=== PATIENT | male | born 1955 | race Caucasian/White ===

== ENCOUNTER 2018-02-16 00:55 | Observation (INO) | payer BC ==
[2018-02-16] MEDS ORDERED: Ondansetron 4 MG/2 ML SDV IVPUSH ONE (01:05)
[2018-02-16] MEDS ORDERED: Morphine 4 MG/ML Syringe IVPUSH ONE (01:06)
[2018-02-16] MEDS ORDERED: Albuterol/Ipratropium 3.0-0.5 MG/3 ML Neb Soln NEB ONE (01:06)
--- NOTE | 2018-02-16 01:13 | EDM.PDOC ---
ED HPI GENERAL MEDICAL PROBLEM - General Chief Complaint: Cardiovascular Problem Stated Complaint: CHEST PAIN Time Seen by Provider: 02/16/18 01:04 Source of Information: Reports: Patient History Limitations: Reports: No Limitations - History of Present Illness INITIAL COMMENTS - FREE TEXT/NARRATIVE: Patient is a 62-year-old gentleman who presents via EMS to the ER with a complaint of chest pain. Patient states that yesterday morning he had some left shoulder pain and presented to the [facility]. He was seen there by provider who gave him pain medicine and told him she planned on referring him to orthopedic surgery. Pain persisted during the day and he took a hydrocodone at 2100 and 2300. He did not obtain relief so contacted 911. Patient had underwent cardiac catheterization 1 week ago. Procedure said to be uneventful. Patient is currently on Plavix. Patient is also complaining of shortness of breath, but denies nausea, vomiting, diarrhea, abdominal pain, headache, vision changes, repetitive motion of left upper extremity, or any fall or trauma recently. 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, Other Medication(s) (Hydrocodone) - Related Data Allergies Allergy/AdvReac Type Severity Reaction Status Date / Time No Known Allergies Allergy Verified 02/16/18 01:33 Home Meds: Home Meds Albuterol [Proventil Neb Soln] 1 dose INH QID PRN 06/05/17 [History] Arformoterol [Brovana] 15 mcg IH BID 06/05/17 [History] Aspirin [Wenceslao Chewable Aspirin] 81 mg PO DAILY 06/05/17 [History] Budesonide [Pulmicort] 1 inh IH BID 06/05/17 [History] Carvedilol [Coreg] 6.25 mg PO DAILY 06/05/17 [History] Clopidogrel Bisulfate [Clopidogrel] 75 mg PO DAILY 06/05/17 [History] Cyclobenzaprine [Flexeril] 5 - 10 mg PO TID PRN 06/05/17 [History] Fluticasone Propionate [Flonase] 1 spray INH BID 06/05/17 [History] Hydrocodone/Acetaminophen [[place] 5-325] 1 each PO BID PRN 06/05/17 [History] Nitroglycerin 0.4 mg SL ASDIRECTED PRN 06/05/17 [History] Rosuvastatin [Crestor] 20 mg PO BEDTIME 06/05/17 [History] Tiotropium [Spiriva HandiHaler] 18 mcg INH DAILY 06/05/17 [History] Losartan [Cozaar] 1 tab PO DAILY 08/21/17 [History] Gabapentin [Neurontin] 300 mg PO BID 12/26/17 [History] Montelukast [Singulair] 10 mg PO BEDTIME 12/26/17 [History] Promethazine HCl/Codeine [Prometh-Codein 6.25-10 mg/5 ml] 2.5 ml PO Q4HR PRN 05/03 [History] Roflumilast [Daliresp] 500 mcg PO DAILY 12/26/17 [History] Isosorbide Mononitrate [Isosorbide Mononitrate ER] 30 mg PO 2100 02/16/18 [ History] Past Medical History HEENT History: Reports: Hard of Hearing Cardiovascular History: Reports: CAD, [place], Stents Respiratory History: Reports: COPD Gastrointestinal History: Reports: Cholelithiasis Musculoskeletal History: Reports: Other (See Below) Neurological History: Reports: CVA, Other (See Below) Other Neuro History: 2006 - Past Surgical History Cardiovascular Surgical History: Reports: Coronary Artery Stent Musculoskeletal Surgical History: Reports: Other (See Below) Other Musculoskeletal Surgeries/Procedures:: surgery on RUE for tendon repair Social & Family History - Family History Cardiac: Reports: CAD, [place] Respiratory: Reports: COPD Neurological: Reports: CVA Oncologic: Reports: Other (See Below) - Caffeine Use Caffeine Use: Reports: Coffee Other Caffeine Use: 4-5 cups a day ED ROS GENERAL - Review of Systems Review Of Systems: ROS reveals no pertinent complaints other than HPI. Constitutional: Reports: No Symptoms HEENT: Reports: No Symptoms Respiratory: Reports: Shortness of Breath Cardiovascular: Reports: Chest Pain Endocrine: Reports: No Symptoms GI/Abdominal: Reports: No Symptoms : Reports: No Symptoms Musculoskeletal: Reports: Shoulder Pain (Left) Skin: Reports: No Symptoms Neurological: Reports: No Symptoms Psychiatric: Reports: No Symptoms Hematologic/Lymphatic: Reports: No Symptoms Immunologic: Reports: No Symptoms ED EXAM, GENERAL - Physical Exam Exam: See Below Exam Limited By: No Limitations General Appearance: Alert, WD/WN, Mild Distress Eye Exam: Bilateral Eye: Normal Inspection Nose: Normal Inspection, Normal Mucosa, No Blood Throat/Mouth: Normal Inspection, Normal Oropharynx, No Airway Compromise Head: Atraumatic, Normocephalic Neck: Normal Inspection, Supple, Non-Tender, Full Range of Motion Respiratory/Chest: No Respiratory Distress, Normal Breath Sounds Cardiovascular: Regular Rate, Rhythm, No Murmur, No Rub GI/Abdominal: Normal Bowel Sounds, Soft, Non-Tender, No Organomegaly, No Distention, No Abnormal Bruit, No Mass Back Exam: Normal Inspection. No: CVA Tenderness (L), CVA Tenderness (R) Extremities: No Pedal Edema, Normal Capillary Refill, Arm Pain (Left shoulder tenderness to palpation and range of motion. No ecchymosis, crepitus, edema, or neurovascular deficit noted.) Neurological: Alert, Oriented, CN II-XII Intact, Normal Cognition, No Motor/ Sensory Deficits Psychiatric: Normal Affect, Normal Mood Skin Exam: Warm, Dry, Intact, Normal Color, No Rash Lymphatic: No Adenopathy EKG INTERPRETATION EKG Date: 02/16/18 Time: 01:05 Rhythm: NSR Rate (Beats/Min): 74 Bedias: Normal P-Wave: Present QRS: Normal ST-T: Other (Nonspecific) QT: Prolonged Comparison: No Change (Previous EKG a 12/26/17) Course - Orders/Labs/Meds Orders: Active Orders 24 hr Category Date Time Status EKG Documentation Completion [RC] ASDIRECTED Care 02/16/18 01:05 Ordered RT Aerosol Therapy [RC] ASDIRECTED Care 02/16/18 01:06 Ordered Chest 1V Frontal [CR] Stat Exams 02/16/18 01:04 Ordered CBC WITH AUTO DIFF [HEME] Stat Lab 02/16/18 01:04 Ordered COMPREHENSIVE METABOLIC PN,CMP [CHEM] Stat Lab 02/16/18 01:04 Ordered D-DIMER QUANTITATIVE [COAG] Stat Lab 02/16/18 01:04 Ordered INR,PT,PROTHROMBIN TIME [COAG] Stat Lab 02/16/18 01:04 Ordered PTT,PARTIAL THROMBOPLSTIN TIME [COAG] Stat Lab 02/16/18 01:04 Ordered TROPONIN I [CHEM] Stat Lab 02/16/18 01:04 Ordered Albuterol/Ipratropium [DuoNeb 3.0-0.5 MG/3 ML] Med 02/16/18 01:06 Once 3 ml NEB ONETIME ONE Morphine Med 02/16/18 01:06 Once 4 mg IVPUSH ONETIME ONE Ondansetron [Zofran] Med 02/16/18 01:05 Once 4 mg IVPUSH ONETIME ONE EKG 12 Lead [EK] Routine Ther 02/16/18 01:04 Ordered - Radiology Interpretation Free Text/Narrative:: Chest x-ray shows bilateral perihilar interstitial thickening suspicion for chronic bronchitis - Re-Assessments/Exams Free Text/Narrative Re-Assessment/Exam: 02/16/18 02:06 Patient afebrile, nontoxic appearing, vital signs stable, pain somewhat controlled. Discussed case with Dr. Younger, he would accept observation admission after EKG and case was reviewed by cardiology. Discussed case and 2 EKGs with soil analyst, Dr. Arnold. Recommendation was for serial enzymes. However, no current requirement for transfer. Departure - Departure Time of Disposition: 02:09 Disposition: Refer to Observation Condition: Fair Clinical Impression: Chest pain Qualifiers: Chest pain type: unspecified Qualified Code(s): R07.9 - Chest pain, unspecified Shoulder pain, left Qualifiers: Chronicity: acute Qualified Code(s): M25.512 - Pain in left shoulder - My Orders Last 24 Hours: My Active Orders 02/16/18 01:04 Chest 1V Frontal [CR] Stat CBC WITH AUTO DIFF [HEME] Stat COMPREHENSIVE METABOLIC PN,CMP [CHEM] Stat D-DIMER QUANTITATIVE [COAG] Stat INR,PT,PROTHROMBIN TIME [COAG] Stat PTT,PARTIAL THROMBOPLSTIN TIME [COAG] Stat TROPONIN I [CHEM] Stat EKG 12 Lead [EK] Routine 02/16/18 01:05 EKG Documentation Completion [RC] ASDIRECTED Ondansetron [Zofran] 4 mg IVPUSH ONETIME ONE 02/16/18 01:06 RT Aerosol Therapy [RC] ASDIRECTED Albuterol/Ipratropium [DuoNeb 3.0-0.5 MG/3 ML] 3 ml NEB ONETIME ONE Morphine 4 mg IVPUSH ONETIME ONE - Assessment/Plan Last 24 Hours: My Active Orders 02/16/18 01:04 Chest 1V Frontal [CR] Stat CBC WITH AUTO DIFF [HEME] Stat COMPREHENSIVE METABOLIC PN,CMP [CHEM] Stat D-DIMER QUANTITATIVE [COAG] Stat INR,PT,PROTHROMBIN TIME [COAG] Stat PTT,PARTIAL THROMBOPLSTIN TIME [COAG] Stat TROPONIN I [CHEM] Stat EKG 12 Lead [EK] Routine 02/16/18 01:05 EKG Documentation Completion [RC] ASDIRECTED Ondansetron [Zofran] 4 mg IVPUSH ONETIME ONE 02/16/18 01:06 RT Aerosol Therapy [RC] ASDIRECTED Albuterol/Ipratropium [DuoNeb 3.0-0.5 MG/3 ML] 3 ml NEB ONETIME ONE Morphine 4 mg IVPUSH ONETIME ONE Assessment:: Chest pain, left shoulder. Plan: Observation admission to Dr. Younger
[2018-02-16 01:36] LABS: ANION GAP 15.7 mmol/L (5-15); CHLORIDE,CL 104 mmol/L (98-115); SODIUM,NA 137 mmol/L (136-145)
[2018-02-16] MEDS ORDERED: HYDROmorphone 1 MG/ML Syringe IVPUSH ONE ×2 (02:10→07:19)
[2018-02-16] MEDS ORDERED: Nitroglycerin 0.4 MG Tab.SL SL ONE (07:19)
[2018-02-16 08:18] LABS: ANION GAP 16.6 mmol/L (5-15); CHLORIDE,CL 101 mmol/L (98-115); SODIUM,NA 137 mmol/L (136-145)
[2018-02-16] MEDS ORDERED: Nitroglycerin 0.4 MG Tab.SL SL PRN ×2 (09:06→10:21)
[2018-02-16] MEDS ORDERED: Lidocaine 2% 100 MG/5 ML Syringe IVPUSH PRN (09:06)
[2018-02-16] MEDS ORDERED: Atropine 0.1 MG/ML 10 ML Syringe IVPUSH PRN (09:06)
[2018-02-16] MEDS ORDERED: EPINEPHrine 1:10,000 1 MG/10 ML Syringe IVPUSH PRN (09:06)
--- NOTE | 2018-02-16 09:26 | PCM.HP ---
H&P History of Present Illness - General Date of Service: 02/16/18 Admit Problem/Dx: Admission Diagnosis/Problem Admission Diagnosis/Problem Chest pain Source of Information: Patient, Family, Old Records, Provider History Limitations: Reports: No Limitations Left Arm Pain Score (Numeric/FACES): 8 - Related Data Allergies/Adverse Reactions: Allergies Allergy/AdvReac Type Severity Reaction Status Date / Time No Known Allergies Allergy Verified 02/16/18 01:33 Home Medications: Home Meds Albuterol [Proventil Neb Soln] 1 dose INH QID PRN 06/05/17 [History] Arformoterol [Brovana] 15 mcg IH BID 06/05/17 [History] Aspirin [Wenceslao Chewable Aspirin] 81 mg PO DAILY 06/05/17 [History] Budesonide [Pulmicort] 1 inh IH BID 06/05/17 [History] Carvedilol [Coreg] 6.25 mg PO BID 06/05/17 [History] Clopidogrel Bisulfate [Clopidogrel] 75 mg PO DAILY 06/05/17 [History] Cyclobenzaprine [Flexeril] 5 - 10 mg PO TID PRN 06/05/17 [History] Fluticasone Propionate [Flonase] 1 spray INH BID PRN 06/05/17 [History] Hydrocodone/Acetaminophen [[place] 5-325] 1 each PO BID PRN 06/05/17 [History] Nitroglycerin 0.4 mg SL ASDIRECTED PRN 06/05/17 [History] Rosuvastatin [Crestor] 40 mg PO 2100 06/05/17 [History] Tiotropium [Spiriva HandiHaler] 18 mcg INH DAILY 06/05/17 [History] Losartan [Cozaar] 25 mg PO 2100 08/21/17 [History] Gabapentin [Neurontin] 300 mg PO BID 12/26/17 [History] Montelukast [Singulair] 10 mg PO 209912/26/17 [History] Promethazine HCl/Codeine [Prometh-Codein 6.25-10 mg/5 ml] 2.5 ml PO Q4HR PRN 05/03 [History] Roflumilast [Daliresp] 500 mcg PO DAILY 12/26/17 [History] Isosorbide Mononitrate [Isosorbide Mononitrate ER] 30 mg PO 2100 02/16/18 [ History] Celecoxib [CeleBREX] 200 mg PO DAILY #30 cap 02/17/18 [Rx] Past Medical History HEENT History: Reports: Hard of Hearing Cardiovascular History: Reports: CAD, [place], Stents Respiratory History: Reports: COPD Gastrointestinal History: Reports: Cholelithiasis Musculoskeletal History: Reports: Other (See Below) Other Musculoskeletal History: Chronic pain in left shoulder from previous accident/injury. Neurological History: Reports: CVA, Other (See Below) Other Neuro History: 2006 - Past Surgical History Cardiovascular Surgical History: Reports: Coronary Artery Stent Musculoskeletal Surgical History: Reports: Other (See Below) Other Musculoskeletal Surgeries/Procedures:: surgery on RUE for tendon repair Social & Family History - Family History Cardiac: Reports: CAD, [place] Respiratory: Reports: COPD Neurological: Reports: CVA Oncologic: Reports: Other (See Below) - Tobacco Use Smoking Status *Q: Former Smoker Used Tobacco, but Quit: Yes Month/Year Tobacco Last Used: 2016 - Caffeine Use Caffeine Use: Reports: Coffee Other Caffeine Use: 4-5 cups a day H&P Review of Systems - Review of Systems: Review Of Systems: See Below General: Reports: No Symptoms HEENT: Reports: No Symptoms Pulmonary: Reports: Shortness of Breath. Denies: Wheezing, Cough, Sputum Cardiovascular: Reports: No Symptoms Gastrointestinal: Reports: No Symptoms Genitourinary: Reports: No Symptoms Musculoskeletal: Reports: Shoulder Pain Skin: Reports: No Symptoms Psychiatric: Reports: No Symptoms Neurological: Denies: Numbness, Tingling Hematologic/Lymphatic: Reports: No Symptoms Immunologic: Reports: No Symptoms Exam - Exam Exam: See Below - Vital Signs Vital Signs: Last Vital Signs Temp 98.4 F 02/16/18 06:24 Pulse 80 02/16/18 08:00 Resp 24 H 02/16/18 06:24 BP 144/77 H 02/16/18 08:00 Pulse Ox 95 02/16/18 06:24 Weight: 198 lb - Exam Quality Assessment: Supplemental Oxygen. No: DVT Prophylaxis (DAPT therapy) General: Alert, Oriented, Mild Distress HEENT: EOMI, Hearing Intact, Mucosa Moist & Oliver, Pupils Reactive Neck: Supple, Trachea Midline. No: Carotid Bruit Lungs: Clear to Auscultation, Normal Respiratory Effort Cardiovascular: Regular Rate, Regular Rhythm, Normal S1, Normal S2 GI/Abdominal Exam: Soft, Non-Tender (Male) Exam: Deferred Rectal (Males) Exam: Deferred Back Exam: No: CVA Tenderness (L), CVA Tenderness (R) Extremities: No Pedal Edema, Limited Range of Motion (left shoulder: Very limited range of motion, unable to perform Brian, painful arc, guarding, tenderness around glenohumeral, ) Skin: Warm, Dry, Intact Neurological: Cranial Nerves Intact, Reflexes Equal Bilateral Neuro Extensive - Mental Status: Alert, Oriented x3 Neuro Extensive - Motor, Sensory, Reflexes: CN II-XII Intact Psychiatric: Alert, Normal Affect, Normal Mood - Patient Data Lab Results Last 24 hrs: Laboratory Results - last 24 hr 02/16/18 02/16/18 02/16/18 Range/Units 01:00 01:00 01:00 WBC 9.07 (5.00-10.00) 10^3/uL RBC 4.26 L (4.50-6.00) 10^6/uL Hgb 11.5 L (13.0-17.0) g/dL Hct 34.8 L (40.0-52.0) % MCV 81.7 L (82.0-92.0) fL MCH 27.0 (27.0-31.0) pg MCHC 33.0 (32.0-36.0) g/dL RDW 15.3 H (11.5-14.5) % Plt Count 269 (150-400) 10^3/uL MPV 8.2 (7.4-10.4) fL Immature Gran % (Auto) 0.2 (0.0-5.0) % Neut % (Auto) 76.4 H (50.0-70.0) % Lymph % (Auto) 12.0 L (20.0-40.0) % [place] % (Auto) 8.2 H (2.0-8.0) % Eos % (Auto) 3.0 (1.0-3.0) % Baso % (Auto) 0.2 (0.0-1.0) % Immature Gran # (Auto) 0.02 (0.00-0.50) 10^3/uL Neut # (Auto) 6.93 (2.50-7.00) 10^3/uL Lymph # (Auto) 1.09 (1.00-4.00) 10^3/uL [place] # (Auto) 0.74 (0.10-0.80) 10^3/uL Eos # (Auto) 0.27 (0.10-0.30) 10^3/uL Baso # (Auto) 0.02 (0.00-0.10) 10^3/uL ESR (0-15) mm/hr PT 10.4 (8.9-11.4) SEC INR 1.0 (0.9-1.1) APTT 26.0 (20.8-31.2) SEC D-Dimer, Quantitative 308 (<400) ng/mL Sodium 137 (136-145) mmol/L Potassium 3.9 (3.3-5.3) mmol/L Chloride 104 (98-115) mmol/L Carbon Dioxide 21.2 (21.0-32.0) mmol/L Anion Gap 15.7 H (5-15) mmol/L BUN 20 (6-25) mg/dL Creatinine 0.85 (0.51-1.17) mg/dL Est Cr Clr Drug Dosing 94.23 mL/min Estimated GFR (MDRD) > 60 mL/min Glucose 146 mg/dL Calcium 8.3 L (8.7-10.3) mg/dL Total Bilirubin 0.3 (0.2-1.0) mg/dL AST 22 (15-37) U/L ALT 14 (12-78) U/L Alkaline Phosphatase 68 (46-116) IU/L Troponin I 0.05 (0.00-0.070) ng/mL Total Protein 6.5 (6.4-8.2) g/dL Albumin 2.97 L (3.00-4.80) g/dL 02/16/18 02/16/18 02/16/18 Range/Units 05:05 07:42 07:42 WBC (5.00-10.00) 10^3/uL RBC (4.50-6.00) 10^6/uL Hgb (13.0-17.0) g/dL Hct (40.0-52.0) % MCV (82.0-92.0) fL MCH (27.0-31.0) pg MCHC (32.0-36.0) g/dL RDW (11.5-14.5) % Plt Count (150-400) 10^3/uL MPV (7.4-10.4) fL Immature Gran % (Auto) (0.0-5.0) % Neut % (Auto) (50.0-70.0) % Lymph % (Auto) (20.0-40.0) % [place] % (Auto) (2.0-8.0) % Eos % (Auto) (1.0-3.0) % Baso % (Auto) (0.0-1.0) % Immature Gran # (Auto) (0.00-0.50) 10^3/uL Neut # (Auto) (2.50-7.00) 10^3/uL Lymph # (Auto) (1.00-4.00) 10^3/uL [place] # (Auto) (0.10-0.80) 10^3/uL Eos # (Auto) (0.10-0.30) 10^3/uL Baso # (Auto) (0.00-0.10) 10^3/uL ESR 50 H (0-15) mm/hr PT (8.9-11.4) SEC INR (0.9-1.1) APTT (20.8-31.2) SEC D-Dimer, Quantitative (<400) ng/mL Sodium 137 (136-145) mmol/L Potassium 4.4 (3.3-5.3) mmol/L Chloride 101 (98-115) mmol/L Carbon Dioxide 23.8 (21.0-32.0) mmol/L Anion Gap 16.6 H (5-15) mmol/L BUN 19 (6-25) mg/dL Creatinine 0.72 (0.51-1.17) mg/dL Est Cr Clr Drug Dosing 111.25 mL/min Estimated GFR (MDRD) > 60 mL/min Glucose 128 mg/dL Calcium 8.4 L (8.7-10.3) mg/dL Total Bilirubin 0.6 (0.2-1.0) mg/dL AST 15 (15-37) U/L ALT 13 (12-78) U/L Alkaline Phosphatase 74 (46-116) IU/L Troponin I 0.04 < 0.04 (0.00-0.070) ng/mL Total Protein 7.1 (6.4-8.2) g/dL Albumin 3.32 (3.00-4.80) g/dL Result Diagrams: 02/16/18 01:00 02/16/18 07:42 Problem List Initiated/Reviewed/Updated: Yes Orders Last 24hrs: Active Orders 24 hr Category Date Time Status Patient Status [ADT] Routine ADT 02/16/18 02:11 Ordered Cardiac Monitoring [RC] . DIRECTED Care 02/16/18 02:11 Active EKG Documentation Completion [RC] ASDIRECTED Care 02/16/18 02:11 Active Oxygen Therapy [RC] PRN Care 02/16/18 02:11 Active Vital Signs [RC] 0300,0700,1100,1500,1900,2300 Care 02/16/18 02:11 Active Heart Healthy Diet [DIET] Diet 02/16/18 Breakfast Active Shoulder Comp Lt [CR] Routine Exams 02/16/18 07:19 Taken Atropine [Atropine 0.1 MG/ML] Med 02/16/18 09:06 Active 0 mg IVPUSH ASDIRECTED PRN EPINEPHrine [EPINEPHrine 1:10,000] Med 02/16/18 09:06 Active 1 mg IVPUSH ASDIRECTED PRN Lidocaine 2% [Xylocaine 2%] Med 02/16/18 09:06 Active 0 mg IVPUSH ASDIRECTED PRN Nitroglycerin [Nitrostat] Med 02/16/18 09:06 Active 0.4 mg SL ASDIRECTED PRN Resuscitation Status Routine Resus Stat 02/16/18 02:11 Ordered EKG 12 Lead [EK] Routine Ther 02/16/18 01:04 Ordered EKG 12 Lead [EK] Routine Ther 02/16/18 05:00 Ordered Medication Orders Atropine Sulfate (Atropine 0.1 Mg/Ml) 0 mg IVPUSH ASDIRECTED PRN PRN Reason: Heart Epinephrine HCl (Epinephrine 1:10,000) 1 mg IVPUSH ASDIRECTED PRN PRN Reason: Heart Lidocaine HCl (Xylocaine 2%) 0 mg IVPUSH ASDIRECTED PRN PRN Reason: Heart Nitroglycerin (Nitrostat) 0.4 mg SL ASDIRECTED PRN PRN Reason: Heart Assessment/Plan Comment:: HISTORY OF PRESENT ILLNESS 62-year-old gentleman was admitted through the ED into observation due to intermittent episodes of shortness of breath along with chest pain radiating into his left neck. Patient with one-week history of percutaneous intervention with subsequent drug-eluting stent of his proximal LAD due to 90% stenosis without postop complications. Patient does have 20 year history of left shoulder arthritis however significantly worsen the past few days. He is due to see orthopedics this [facility]. Left shoulder x-rays demonstrate severe pre-existing degenerative change involving the glenohumeral joint space along with sclerosis along the glenoid fossa and spurring along the periphery of the of the joint space, more so inferiorly, moderate spurring along the AC joint. Uses hydrocodone sparingly and is on a pain management contract. On DAPT likely for life due to his history, Coreg, along with recently added Imdur, Nitrostat, his statin therapy was recently increased of rosuvastatin and for his CAD and cardiac ischemia. ARB for hypertension. Patient uses multiple medications for his COPD. Pertinent ED workup Troponin negative Initial EKG; T-wave abnormality BP 103/69 Primary problems Chest pain Arthritis, degenerative, left shoulder Chronic problems CAD, high intensity statin, Nitrates HTN, ARB, coreg COPD, B2a, ICS, LABA, LAMA, Daliresp, Singulair CVA ischemic hx. DAPT Disposition, continue with observation serial cardiac enzymes, needs improved BP control, likely could benefit from diagnostic cortisone injection left shoulder. Monitor for bronchospasms since patient on B2a with history of COPD. repeat EKG this morning appears to demonstrate shallow symmetrical T-wave inversion however no Wellens waves, --will repeat today and monitor for symptoms.
[2018-02-16] MEDS ORDERED: Fluticasone Propionate Nasal Spray 16 GM Bottle NASBOTH PRN (10:21)
[2018-02-16] MEDS ORDERED: Acetaminophen/HYDROcodone 325-5 MG Tab PO PRN (10:21)
[2018-02-16] MEDS ORDERED: Albuterol 0.083% 2.5 MG/3 ML Neb Soln INH PRN (10:21)
[2018-02-16] MEDS ORDERED: Cyclobenzaprine 10 MG Tab PO PRN (10:21)
[2018-02-16] MEDS ORDERED: Roflumilast 500 MCG Tab PO SCH ×2 (11:00→12:12)
[2018-02-16] MEDS ORDERED: Tiotropium Inhaler 18 MCG Inhalation Powder Cap Kit of 5 INH SCH (11:00)
[2018-02-16] MEDS: Arformoterol 15 MCG/2 ML Neb Soln INH SCH ×2 (11:02→21:54)
[2018-02-16] MEDS ORDERED: Lidocaine 1% with EPINEPHrine 1:100,000 20 ML MDV INJECT ONE (11:30)
[2018-02-16] MEDS ORDERED: Bupivacaine 0.5% 50 ML MDV INJECT ONE (11:30)
[2018-02-16] MEDS ORDERED: methylPREDNISolone Acetate 40 MG/ML SDV INJECT ONE (11:30)
[2018-02-16] MEDS ORDERED: predniSONE 20 MG Tab PO ONE (11:51)
[2018-02-16] MEDS: Budesonide 0.5 MG/2 ML Neb Susp INH SCH ×2 (11:52→22:08)
[2018-02-16] MEDS ORDERED: Famotidine 20 MG Tab PO ONE (11:52)
[2018-02-16] MEDS: Tiotropium Inhaler 18 MCG Inhalation Powder Cap INH SCH (11:55)
[2018-02-16] MEDS: Aspirin 81 MG Tab.Chew PO SCH (12:07)
[2018-02-16] MEDS: Gabapentin 300 MG Cap PO SCH ×2 (12:07→22:01)
[2018-02-16] MEDS: Clopidogrel 75 MG Tab PO SCH (12:07)
[2018-02-16] MEDS: Carvedilol 6.25 MG Tab PO SCH ×2 (12:08→22:04)
[2018-02-16] MEDS: Celecoxib 100 MG Cap PO SCH ×2 (12:09→22:01)
[2018-02-16] MEDS: Roflumilast 500 MCG Tab PO SCH (12:29)
--- NOTE | 2018-02-16 14:59 | OR ---
DATE OF SURGERY: 02/16/2018 SURGEON: Ani Allen MD PREOPERATIVE DIAGNOSIS: Acute effusion of the left shoulder causing severe pain. POSTOPERATIVE DIAGNOSIS: Acute effusion of the left shoulder causing severe pain. OPERATION PERFORMED: Ultrasound-guided aspiration of left shoulder and injection of Depo-Medrol and Marcaine. INFORMED CONSENT: Informed consent was obtained from the patient regarding this procedure. All possible complications were thoroughly discussed. The patient understands and wishes to proceed. DESCRIPTION OF PROCEDURE: He was kept in the sitting position. The posterolateral aspect of the left shoulder was thoroughly prepped. Ultrasound guidance was used to anesthetize the needle tract with xylocaine 1%, and introduced a 22-gauge needle right into the shoulder joint. We then aspirated approximately 10 mL of a pale bradley solution. This was sent for histology. We then injected 40 mg of Depo-Medrol and 7.0 mL of Marcaine 0.5%. The patient tolerated the procedure well. He indicated a moderate degree of relief of discomfort following the procedure. He will be treated with Celebrex 200 mg twice a day and ice pack, and he does have hydrocodone for further relief of discomfort. /[id number]/MODL MTDD
[2018-02-16] MEDS ORDERED: Losartan 25 MG Tab PO SCH (21:00)
[2018-02-16] MEDS ORDERED: Rosuvastatin 10 MG Tab PO SCH (21:00)
[2018-02-16] MEDS ORDERED: Montelukast 10 MG Tab PO SCH (21:00)
[2018-02-16] MEDS ORDERED: Isosorbide Mononitrate 30 MG Tab.ER PO SCH (21:00)
[2018-02-17] MEDS: Gabapentin 300 MG Cap PO SCH (08:51)
[2018-02-17] MEDS: Clopidogrel 75 MG Tab PO SCH (08:51)
[2018-02-17] MEDS: Celecoxib 100 MG Cap PO SCH (08:51)
[2018-02-17] MEDS: Aspirin 81 MG Tab.Chew PO SCH (08:51)
[2018-02-17] MEDS: Carvedilol 6.25 MG Tab PO SCH (08:52)
[2018-02-17] MEDS: Roflumilast 500 MCG Tab PO SCH (08:57)
[2018-02-17] MEDS ORDERED: Aspirin 81 MG Tab.Chew PO SCH (09:00)
[2018-02-17] MEDS: Arformoterol 15 MCG/2 ML Neb Soln INH SCH (09:20)
[2018-02-17] MEDS: Budesonide 0.5 MG/2 ML Neb Susp INH SCH (09:20)
--- NOTE | 2018-02-17 09:20 | PCM.DCSUM1 ---
Discharge Summary - Hospital Course Diagnosis: Stroke: No - Discharge Data Discharge Date: 02/17/18 Discharge Disposition: Home, Self-Care 01 Condition: Good - Patient Instructions Diet: Usual Diet as Tolerated Activity: No Lifting Over 10 Pounds, No Strenuous Activities, Rest and Relax Today Driving: May Drive Today Showering/Bathing: May Shower Notify Provider of: Fever, Increased Pain, Nausea and/or Vomiting (If chest pain take nitroglycerin and seek medical care, take a Tums daily while on your new medications Celebrex. Report any blood or dark urine any signs of gastrointestinal bleeding or upset stomach. Bring your x-ray reports and CD to orthopedics with you. Bring all documents from this hospital to orthopedic appointment. ) - Discharge Plan *PRESCRIPTION DRUG MONITORING PROGRAM REVIEWED*: No *COPY OF PRESCRIPTION DRUG MONITORING REPORT IN PATIENT SHELDON: No Prescriptions/Med Rec: Celecoxib [CeleBREX] 200 mg PO DAILY #30 cap Home Medications: Home Meds Albuterol [Proventil Neb Soln] 1 dose INH QID PRN 06/05/17 [History] Arformoterol [Brovana] 15 mcg IH BID 06/05/17 [History] Aspirin [Wenceslao Chewable Aspirin] 81 mg PO DAILY 06/05/17 [History] Budesonide [Pulmicort] 1 inh IH BID 06/05/17 [History] Carvedilol [Coreg] 6.25 mg PO BID 06/05/17 [History] Clopidogrel Bisulfate [Clopidogrel] 75 mg PO DAILY 06/05/17 [History] Cyclobenzaprine [Flexeril] 5 - 10 mg PO TID PRN 06/05/17 [History] Fluticasone Propionate [Flonase] 1 spray INH BID PRN 06/05/17 [History] Hydrocodone/Acetaminophen [Frisco 5-325] 1 each PO BID PRN 06/05/17 [History] Nitroglycerin 0.4 mg SL ASDIRECTED PRN 06/05/17 [History] Rosuvastatin [Crestor] 40 mg PO 209906/05/17 [History] Tiotropium [Spiriva HandiHaler] 18 mcg INH DAILY 06/05/17 [History] Losartan [Cozaar] 25 mg PO 2100 08/21/17 [History] Gabapentin [Neurontin] 300 mg PO BID 12/26/17 [History] Montelukast [Singulair] 10 mg PO 209912/26/17 [History] Promethazine HCl/Codeine [Prometh-Codein 6.25-10 mg/5 ml] 2.5 ml PO Q4HR PRN 05/03 [History] Roflumilast [Daliresp] 500 mcg PO DAILY 12/26/17 [History] Isosorbide Mononitrate [Isosorbide Mononitrate ER] 30 mg PO 209902/16/18 [ History] Celecoxib [CeleBREX] 200 mg PO DAILY #30 cap 02/17/18 [Rx] Forms: Return to Work/Inpatient OON Referrals: Santa Coyle PA-C [Primary Care Provider] - (Follow-up with Santa or any provider [facility] Wednesday. ) - Discharge Summary/Plan Comment DC Time >30 min.: Yes Discharge Summary/Plan Comment: Final diagnosis Rule out myocardial infarction, this was ruled out Arthritis, degenerative, left shoulder Chronic problems CAD, high intensity statin, Nitrates HTN, ARB, coreg COPD, B2a, ICS, LABA, LAMA, Daliresp, Singulair CVA ischemic hx. DAPT History 62-year-old gentleman was admitted through the ED into observation due to intermittent episodes of shortness of breath along with anterior and left-sided chest pain radiating into his left neck. Patient with one-week history of percutaneous intervention with subsequent drug-eluting stent of his proximal LAD due to 90% stenosis without postop complications. Patient does have 20 year history of left shoulder arthritis however significantly worsen the past few days. He is due to see orthopedics this Wednesday [facility]. Left shoulder x-rays demonstrate severe pre-existing degenerative change involving the glenohumeral joint space along with sclerosis along the glenoid fossa and spurring along the periphery of the of the joint space, more so inferiorly, moderate spurring along the AC joint. Uses hydrocodone sparingly and is on a pain management contract. On DAPT likely for life due to his history, Coreg, along with recently added Imdur, Nitrostat, his statin therapy was recently increased of rosuvastatin and for his CAD and cardiac ischemia. ARB for hypertension. Diagnostics Left shoulder radiographs demonstrate severe pre-existing degenerative change involving the glenohumeral joint space along with sclerosis along the glenoid fossa and spurring along the periphery of the of the joint space, more so inferiorly, along with moderate spurring along the AC joint. EKG, transient shallow T-wave inversion V5 Hospital course His hospital course went fairly well however he did have significant left shoulder pain anterior chest wall pain radiating into his left side of his neck which appeared to be more arthritic in nature as the patient underwent ultrasound guided aspiration left shoulder and injection with Depo-Medrol and Marcaine in which he got tremendous benefit. He had no side effects or adverse reactions to any medications or treatments. He remained on telemetry and was monitored closely. He was also treated with Celebrex, and by the morning of discharge felt much improved. Troponins were normal he did have mild T-wave inversion on lead 5 which appeared to be transient doubtful if Wellens waves as waves were quite shallow Medications adjustments/changes on discharge Celebrex 200 mg by mouth daily (newly added) Tums, daily (newly added) While on Celebrex He can continue on all his other home medications including isosorbide Consultations Orthopedic appointment [facility] February 18 Disposition, patient will be discharged from observation, as an orthopedic appointment tomorrow [facility]. He is to take CD/x-ray reports with him. Follow-up [facility] next week. Return to work date over . home self- care and reporting instructions clearly specify to patient verbally and in writing. - Patient Data Vitals - Most Recent: Last Vital Signs Temp 97.7 F 02/17/18 06:15 Pulse 75 02/17/18 08:52 Resp 18 02/17/18 06:15 BP 120/66 02/17/18 08:52 Pulse Ox 93 L 02/17/18 06:15 Weight - Most Recent: 198 lb I&O - Last 24 hours: Intake & Output 02/16/18 02/17/18 02/17/18 22:59 06:59 14:59 Intake Total 720 300 Output Total 3350 400 Balance -2630 -100 Lab Results - Last 24 hrs: Laboratory Results - last 24 hr 02/16/18 Range/Units 14:08 Troponin I 0.04 (0.00-0.070) ng/mL Med Orders - Current: Current Medications Hydrocodone Bitart/Acetaminophen (Frisco 325-5 Mg) 1 tab PO BID PRN PRN Reason: Pain Last Admin: 02/16/18 14:14 Dose: 1 tab Albuterol (Proventil Neb Soln) 2.5 mg INH QID PRN PRN Reason: Shortness of Breath Arformoterol Tartrate (Brovana) 15 mcg INH BID [facility] Last Admin: 02/16/18 21:54 Dose: 15 mcg Aspirin (Aspirin) 81 mg PO DAILY [facility] Last Admin: 02/17/18 08:51 Dose: 81 mg Atropine Sulfate (Atropine 0.1 Mg/Ml) 0 mg IVPUSH ASDIRECTED PRN PRN Reason: Heart Budesonide (Pulmicort) 0.5 mg INH BID [facility] Last Admin: 02/16/18 22:08 Dose: 0.5 mg Carvedilol (Coreg) 6.25 mg PO BID [facility] Last Admin: 02/17/18 08:52 Dose: 6.25 mg Celecoxib (Celebrex) 200 mg PO BID [facility] Last Admin: 02/17/18 08:51 Dose: 200 mg Clopidogrel Bisulfate (Plavix) 75 mg PO DAILY [facility] Last Admin: 02/17/18 08:51 Dose: 75 mg Cyclobenzaprine HCl (Flexeril) 5 - 10 mg PO TID PRN PRN Reason: neck pain/headache Epinephrine HCl (Epinephrine 1:10,000) 1 mg IVPUSH ASDIRECTED PRN PRN Reason: Heart Fluticasone Propionate (Flonase) 0 gm NASBOTH BID PRN PRN Reason: Allergies Gabapentin (Neurontin) 300 mg PO BID [facility] Last Admin: 02/17/18 08:51 Dose: 300 mg Isosorbide Mononitrate (Imdur) 30 mg PO 2100 [facility] Last Admin: 02/16/18 22:01 Dose: 30 mg Lidocaine HCl (Xylocaine 2%) 0 mg IVPUSH ASDIRECTED PRN PRN Reason: Heart Losartan Potassium (Cozaar) 25 mg PO 2100 [facility] Last Admin: 02/16/18 22:03 Dose: 25 mg Montelukast Sodium (Singulair) 10 mg PO 2100 [facility] Last Admin: 02/16/18 22:01 Dose: 10 mg Nitroglycerin (Nitrostat) 0.4 mg SL ASDIRECTED PRN PRN Reason: Heart Tiotropium Inhaler 18 Mcg Inhalation Powder Cap 1 each INH DAILY [facility] Last Admin: 02/16/18 11:55 Dose: 1 each Roflumilast 500 Mcg (Tab) 1 each PO DAILY [facility] Last Admin: 02/17/18 08:57 Dose: 1 each Rosuvastatin Calcium (Crestor) 40 mg PO 2100 [facility] Last Admin: 02/16/18 22:04 Dose: 40 mg Discontinued Medications Albuterol/Ipratropium (Duoneb 3.0-0.5 Mg/3 Ml) 3 ml NEB ONETIME ONE Stop: 02/16/18 01:07 Last Admin: 02/16/18 01:21 Dose: 3 ml Aspirin (Aspirin) 81 mg PO DAILY [facility] Bupivacaine HCl (Marcaine 0.5%) 7 ml INJECT ONETIME ONE Stop: 02/16/18 11:31 Last Admin: 02/16/18 14:08 Dose: Not Given Famotidine (Pepcid) 20 mg PO ONETIME ONE Stop: 02/16/18 11:53 Last Admin: 02/16/18 12:09 Dose: 20 mg Hydromorphone HCl (Dilaudid) 0.5 mg IVPUSH ONETIME ONE Stop: 02/16/18 02:11 Last Admin: 02/16/18 02:42 Dose: 0.5 mg Hydromorphone HCl (Dilaudid) 0.5 mg IVPUSH ONETIME ONE Stop: 02/16/18 07:20 Last Admin: 02/16/18 08:06 Dose: 0.5 mg Lidocaine/Epinephrine (Xylocaine 1% With Epinephrine 1:100,000) 5 ml INJECT ONETIME ONE Stop: 02/16/18 11:31 Last Admin: 02/16/18 14:08 Dose: Not Given Methylprednisolone Acetate (Depo-Medrol) 40 mg INJECT ONETIME ONE Stop: 02/16/18 11:31 Last Admin: 02/16/18 14:08 Dose: Not Given Morphine Sulfate (Morphine) 4 mg IVPUSH ONETIME ONE Stop: 02/16/18 01:07 Last Admin: 02/16/18 01:16 Dose: 4 mg Nitroglycerin (Nitrostat) 0.4 mg SL ONETIME ONE Stop: 02/16/18 07:20 Last Admin: 02/16/18 07:40 Dose: 0.4 mg Ondansetron HCl (Zofran) 4 mg IVPUSH ONETIME ONE Stop: 02/16/18 01:06 Last Admin: 02/16/18 01:10 Dose: 4 mg Roflumilast 500 Mcg (Tab) 1 each PO DAILY [facility] Prednisone (Prednisone) 20 mg PO ONETIME ONE Stop: 02/16/18 11:52 Last Admin: 02/16/18 12:09 Dose: 20 mg Roflumilast (Daliresp) 500 mcg PO DAILY [facility] Last Admin: 02/16/18 12:19 Dose: Not Given Tiotropium Harrod (Spiriva Handihaler) 18 mcg INH DAILY [facility] Last Admin: 02/16/18 12:20 Dose: Not Given
[2018-02-17] MEDS: Tiotropium Inhaler 18 MCG Inhalation Powder Cap INH SCH (09:22)
== END 2018-02-17 10:05 | disposition home or self-care (01) ==
LOC: KA.ED 00:55 → KA.MS 02:25 → UNDOADMOB 02:25
PROVIDERS: ADMIT Physician Assistant Surgical; ATTEND Family Medicine
DX: R07.9 Chest pain, unspecified (principal); I25.10 Atherosclerotic heart disease of native coronary artery without angina pectoris; I10 Essential (primary) hypertension; J44.9 Chronic obstructive pulmonary disease, unspecified; M19.012 Primary osteoarthritis, left shoulder; M25.412 Effusion, left shoulder; Z79.02 Long term (current) use of antithrombotics/antiplatelets; Z79.82 Long term (current) use of aspirin; Z79.899 Other long term (current) drug therapy; Z87.891 Personal history of nicotine dependence
CPT/HCPCS: 36415; 71045; 73030-LT; 76999; 80053; 84484; 85025; 85379; 85610; 85651; 85730; 89060; 94640; 94640-76; 96374; 96375; 96376; 99285; A9270-GY; G0378; J1170; J2270; J2405; J7620-GY